=== PATIENT | male | born 1985 | race African-American/Black ===

== ENCOUNTER 2016-08-06 18:58 | Emergency (ER) | payer OTHER ==
[~2016-08-06] VITALS: Ht 177.8 cm; Wt 122.5 kg
[~2016-08-06 18:58] MED LIST: PERCOCET 325 MG1 TA2 PO; ROBITUSSIN W/CO10 ML PO; ZITHROMAX Z-PA250 M1 PO
--- NOTE | 2016-08-06 20:02 | RADIOLOGY REPORT ---
EXAMINATION: RIGHT KNEE 3 VIEWS CLINICAL INFORMATION: Right knee pain. COMPARISON: None. TECHNIQUE: AP, lateral, oblique views of the right knee were obtained. FINDINGS: There are no fractures or dislocations. There is no knee joint effusion. There is osteophyte formation about the lateral compartments. There is no significant soft tissue swelling. IMPRESSION: Mild degenerative change to the right knee which is age discordant. No evidence for acute injury.
--- NOTE | 2016-08-06 21:27 | ED UPPER/LOWER EXTREMITY COMPL ---
History of Present Illness General Chief Complaint: Lower Extremity Injury Stated Complaint: RT KNEE INJ Source: patient Exam Limitations: no limitations Vital Signs & Intake/Output Vital Signs & Intake/Output Vital Signs Date Time Temp Pulse Resp B/P B/P Pulse O2 O2 Flow FiO2 Mean Ox Delivery Rate 08/06 2146 96.5 78 16 125/88 97 08/06 1909 98.8 75 18 112/76 ED Intake and Output 08/07 0000 08/06 1200 Intake Total 90 Output Total Balance 90 Intake, Oral 90 Patient 270 lb Weight Weight Reported by Patient Measurement Method Allergies Coded Allergies: MDX - Shrimp (SHRIMP) (Intermediate, RASH 05/17/14) Reconcile Medications Azithromycin (Zithromax Z-Kemal) 250 MG CAP 1 DP PO AD BRONCHITIS 2 the first day followed by 1 for days 2-5 Ibuprofen 800 MG TABLET 1 TAB PO TID PRN pain Robitussin AC (Guaifenesin-Codeine Syrup) 10 ML LIQUID 10 ML PO Q6HR PRN COUGH Triage Note: REPORTS RIGHT KNEE PAIN THAT STARTED LAST NIGHT. REPORTED OLD INJURY BACK IN 2011 AND NEVER FOLLOWED UP RECOMMENDED. Triage Nurses Notes Reviewed? yes Onset: Abrupt Duration: hour(s): Timing: single episode today Severity: moderate Pain/Injury Location: Right: Knee. Method of Injury: twisted Modifying Factors: Improves With: rest. Worsens With: movement. Associated Symptoms: none HPI: 30yo gentleman injured in 2011 "my knee cap popped out" presents with right knee pain. "I turned and felt a sharp pain in my right knee." He notes no swelling, bony abnormality, decrease in range of motion. He is otherwise well and has no other concerns. Past History Travel History Traveled to [place] past 21 day No Medical History Any Pertinent Medical History? 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 No Review of Systems Review of Systems Constitutional: Reports: no symptoms. EENTM: Reports: no symptoms. Respiratory: Reports: no symptoms. Cardiovascular: Reports: no symptoms. Gastrointestinal/Abdominal: Reports: no symptoms. Genitourinary: Reports: no symptoms. Musculoskeletal: Reports: no symptoms. Skin: Reports: no symptoms. Neurological/Psychological: Reports: no symptoms. Hematologic/Endocrine: Reports: no symptoms. Immunological: Reports: no symptoms. All Other Systems: Reviewed and Negative Physical Exam Physical Exam General Appearance: well developed/nourished, mild distress Head: atraumatic Eyes: Bilateral: normal appearance. Ears, Nose, Throat: normal pharynx, normal ENT inspection, hearing grossly normal Neck: normal inspection, supple Cardiovascular/Respiratory: regular rate/rhythm Back: normal inspection Leg Right: no significant effusion. There is pain elicited with stress placed on the lateral collateral ligaments. No focal bony tenderness. Range of motion is normal. No sign of infection. Skin: intact, normal color, warm/dry Lymphatic: no anterior cervical nigel Progress Differential Diagnosis: right knee sprain versus contusion versus other Plan of Care: Orders Procedure Date/time Status Durable Medical Equipment 08/06 2142 Active Diagnostic Imaging: Viewed by Me: Radiology Read. Discussed w/RAD: Radiology Read. Radiology Impression: right knee... mild djd... no fx. Comments: PATIENT: MANPREET SINGLETON PRESENT AGE: 30 PATIENT ACCOUNT NO: [id number] : 86 LOCATION: [facility] ORDERING PHYSICIAN: NATALIIA SOTO MD SERVICE DATE: 08/06/16 EXAM TYPE: RAD - XRY-KNEE COMPLETE RIGHT EXAMINATION: RIGHT KNEE 3 VIEWS CLINICAL INFORMATION: Right knee pain. COMPARISON: None. TECHNIQUE: AP, lateral, oblique views of the right knee were obtained. FINDINGS: There are no fractures or dislocations. There is no knee joint effusion. There is osteophyte formation about the lateral compartments. There is no significant soft tissue swelling. IMPRESSION: Mild degenerative change to the right knee which is age discordant. No evidence for acute injury. DICTATED BY: NILA CHILDERS MD DATE/TIME DICTATED:08/06/161956 BLACK OFF WORKER:DAISY DATE/TIME TRANSCRIBED:08/06/161956 CONFIDENTIAL, DO NOT COPY WITHOUT APPROPRIATE AUTHORIZATION. <Electronically signed in Other Vendor System> SIGNED BY: NILA CHILDERS MD 08/06/162001 Departure Departure Disposition: HOME OR SELF CARE Condition: Stable Clinical Impression Primary Impression: Right knee sprain Referrals: PATIENT HAS NO PRIMARY CARE DR (PCP/Family) Departure Forms: Customer Survey General Discharge Information Prescriptions: Current Visit Scripts Ibuprofen 1 TAB PO TID PRN pain #60 TAB Ref 1 Comments Reynold bandage to right knee by nursing team. Patient given crutches. Prescription for ibuprofen sent to the pharmacy. Close follow-up encouraged.
[2016-08-06] MEDS ORDERED: IBUPROFEN800 M1 PO (21:35)
[2016-08-06 21:46] VITALS: BP 125/88
== END 2016-08-06 21:52 ==
LOC: ERH 18:58
DX: S83.91XA Sprain of unspecified site of right knee, initial encounter (principal); X58.XXXA Exposure to other specified factors, initial encounter; Y92.9 Unspecified place or not applicable; Y93.9 Activity, unspecified
CPT/HCPCS: 73562-RT

== ENCOUNTER 2017-07-10 12:07 | Emergency (ER) | payer OTHER ==
[~2017-07-10] VITALS: Ht 175.3 cm; Wt 136.1 kg
[~2017-07-10 12:07] MED LIST changes: +IBUPROFEN800 M1 PO
--- NOTE | 2017-07-10 14:06 | ED HAND/WRIST INJURY COMPLAINT ---
History of Present Illness General Chief Complaint: Laceration Procedure Stated Complaint: LAC TO FINGER LEFT Source: patient Exam Limitations: no limitations Vital Signs & Intake/Output Vital Signs & Intake/Output Vital Signs Date Time Temp Pulse Resp B/P B/P Pulse O2 O2 Flow FiO2 Mean Ox Delivery Rate 07/10 1512 97.8 80 15 107/70 99 Room Air Room Air 07/10 1224 99.2 07/10 1220 99.2 88 18 102/73 98 Room Air Allergies Coded Allergies: MDX - Shrimp (SHRIMP) (Intermediate, RASH 05/17/14) Reconcile Medications Azithromycin (Zithromax Z-Kemal) 250 MG CAP 1 DP PO AD BRONCHITIS 2 the first day followed by 1 for days 2-5 Ibuprofen 800 MG TABLET 1 TAB PO TID PRN pain Robitussin AC (Guaifenesin-Codeine Syrup) 10 ML LIQUID 10 ML PO Q6HR PRN COUGH Triage Note: 31M WITH LAC TO LEFT 5TH DIGIT FROM LAST NIGHT AT 11PM ON METAL AT WORK. UNSURE OF LAST TETANUS. BLEEDING CONTROLLED AT THIS TIME. Triage Nurses Notes Reviewed? yes Occurred: LAST NIGHT Timing: no prior history Injury Environment: work Severity: mild Pain/Injury Location: Left: 5th finger. 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 PATIENT REACHED DOWN TO PULL THE STRING AND HE DID THIS THE TIP OF HIS LEFT 5TH FINGER WAS CAUGHT ON THE EDGE OF THE [employer] MACHINE AND TORE THE TIP OF HIS FINGER THROUGH HIS NAIL. HE STATES THIS WAS AT THE END OF THE SHIFT HE WAS LEAVING. HE WENT HOME AFTER THIS BECAUSE HE DIDN'T HAVE A RIDE. HE STATES AT FIRST IT WAS BLEEDING BUT HE HELD PRESSURE FOR QUITE SOME TIME AND THE BLEEDING STOPPED. HE STATES THERE IS THROBBING IN THIS FINGER CURRENTLY ALTHOUGH HE CAN'T FEEL THE TIP. DENIES FEVER, CHILLS, NAUSEA, VOMITING. (Alfie Reed) Past History Travel History Traveled to [place] past 21 day No Medical History Any Pertinent Medical History? 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 No (Alfie Reed) Review of Systems Review of Systems Constitutional: Reports: no symptoms. EENTM: Reports: no symptoms. Respiratory: Reports: no symptoms. Cardiovascular: Reports: no symptoms. GI: Reports: no symptoms. Genitourinary: Reports: no symptoms. Musculoskeletal: Reports: no symptoms. Skin: Reports: see HPI. Neurological/Psychological: Reports: no symptoms. Hematologic/Endocrine: Reports: no symptoms. Immunologic/Allergic: Reports: no symptoms. All Other Systems: Reviewed and Negative (Alfie Reed) Physical Exam Physical Exam General Appearance: well developed/nourished, no apparent distress, alert, awake Head: atraumatic, normal appearance Eyes: Bilateral: normal appearance. Ears, Nose, Throat: normal ENT inspection Neck: normal inspection Cardiovascular/Respiratory: no respiratory distress Hand Left: 5th finger, 5TH DISTAL PHALANGE AVULSION WITH DAMAGE TO THE NAILBED. NO SURROUNDING ERYTHEMA OR PURULENT DISCHARGE Hand Right: normal inspection Neurologic/Tendon: normal motor functions, normal tendon functions, responds to pain, no evidence tendon injury, no pulse deficit, SENSATION LIMITED AT THE TIP OF THE LEFT 5TH PHALANGE AT SITE OF AVULSION Skin: intact (Alfie Reed) Progress Differential Diagnosis: abscess, cellulitis, AVULSION/LACERATION, SOFT TISSUE FOREIGN BODY Plan of Care: Considered in time 31 YEAR OLD MALE WITH LEFT 5TH DISTAL PHALANGE WITH AVULSION OF SKIN AND NAILBED. TOLERATED NERVE BLOCK AND FLUSHING WITH NORMAL SALINE. GIVEN TETANUS VACCINE. PATIENT ADVISED 2 DAYS TO AVOID WORKING AND ALLOW HEALING. RETURN WITH WORSENING SYMPTOMS. NOT SUTURABLE ON EXAM. (Alfie Reed) Departure Departure Disposition: HOME OR SELF CARE Condition: Stable Clinical Impression Primary Impression: Avulsion of skin of finger Referrals: Vicki AVENDAÑO,Bienvenido Villalta (PCP/Family) Additional Instructions: Monitor signs of infection such as redness or discharge fever chills. Return if any other concerns. Keep area clean and dry. Wash with soap and water daily. Cover with bacitracin and dry sterile dressing. Please go over all results of today's visit with your primary care doctor. Contact your primary care doctor to let them know you were here in the emergency room. There may be nonspecific findings which may not be related to your visit today here in the emergency room but may require further evaluation and chronic monitoring by your primary care doctor. If you had a laceration today the chance of foreign body always remains. You should follow-up with your primary care doctor for recheck in 3-5 days for a wound check. If you had an x-ray done there is a chance that a fracture could have been missed on initial read and you should follow-up with your primary care doctor for repeat x-rays if symptoms persist. If your blood pressure was elevated here in the emergency room please have rechecked by [facility] primary care doctor within the next 48. If you were prescribed a narcotic here in the emergency room or any type of controlled substances you're not allowed to drive while taking this medication or operate any type of heavy machinery. Narcotics can make you feel lightheaded dizziness nausea and can cause constipation. You may need to fruit or nut picker a stool softener. Thank you for choosing [facility] emergency room. Please return to the emergency room immediately if you have any other concerns worsening of symptoms. Departure Forms: Customer Survey General Discharge Information (Alfie Reed) PA/CYBER SECURITY ARCHITECT Co-Sign Statement Statement: ED Attending supervision documentation- [] I saw and evaluated the patient. I have also reviewed all the pertinent lab results and diagnostic results. I agree with the findings and the plan of care as documented in the PA's/CYBER SECURITY ARCHITECT's documentation. [X] I have reviewed the ED Record and agree with the PA's/CYBER SECURITY ARCHITECT's documentation. [] Additions or exceptions (if any) to the PAs/CYBER SECURITY ARCHITECT's note and plan are summarized below: [] (Donna AVENDAÑO,Bienvenido Rosas) Procedures Laceration/Wound Repair Laceration/Wound Repair: Wound Location: upper extremity (5TH LEFT PHALANGE) Wound's Depth, Shape: SUPERFICIAL SKIN/NAIL AVULSION Wound Explored: clean, no foreign body removed, irrigated extensively Irrigated w/ Saline (ccs): 5 Betadine Prep? Yes Anesthesia: digit block, 1% lidocaine Tetanus Status: not up to date (GIVEN TODAY) Progress: PATIENT TOLERATED WELL. (Alfie Reed) ED Attending Observation Initial Observation Note: I have seen and personally examined MANPREET SINGLETON on 07/10/17 at 1510. I agree with the current emergency department documentation. The disposition (admission or discharge) is uncertain at this time, he needs a period of observation for the following reason(s): The ED Nurse caring for this patient has been personally informed as to what the patient is being observed for. (Arnulfo PERRY,Alfie)
[2017-07-10 15:12] VITALS: BP 107/70
== END 2017-07-10 15:13 ==
LOC: ERH 12:07
DX: S61.317A Laceration without foreign body of left little finger with damage to nail, initial encounter (principal); X58.XXXA Exposure to other specified factors, initial encounter; Y92.9 Unspecified place or not applicable; Y93.9 Activity, unspecified
CPT/HCPCS: 90471; 90714

== ENCOUNTER 2017-07-16 15:42 | Emergency (ER) | payer OTHER ==
[~2017-07-16] VITALS: Ht 175.3 cm; Wt 133.8 kg
[2017-07-16 15:48] VITALS: BP 132/84
--- NOTE | 2017-07-16 17:04 | ED GENERAL ADULT ---
History of Present Illness General Chief Complaint: Hand or Wrist Injury Stated Complaint: LFT FINGER INJURY X 5DAYS AGO Source: patient Exam Limitations: no limitations Vital Signs & Intake/Output Vital Signs & Intake/Output Vital Signs Date Time Temp Pulse Resp B/P B/P Pulse O2 O2 Flow FiO2 Mean Ox Delivery Rate 07/16 1548 98.4 74 18 132/84 99 Room Air ED Intake and Output 07/17 0000 07/16 1200 Intake Total Output Total Balance Patient 295 lb Weight Weight Reported by Patient Measurement Method Allergies Coded Allergies: MDX - Shrimp (SHRIMP) (Intermediate, RASH 05/17/14) shellfish derived (ANAPHYLASIX 07/16/17) Reconcile Medications Azithromycin (Zithromax Z-Kemal) 250 MG CAP 1 DP PO AD BRONCHITIS 2 the first day followed by 1 for days 2-5 Ibuprofen 800 MG TABLET 1 TAB PO TID PRN pain Robitussin AC (Guaifenesin-Codeine Syrup) 10 ML LIQUID 10 ML PO Q6HR PRN COUGH Triage Note: PT FROM HOME C/O LEFT PINKY HAND INJURY X5 DAYS. PT STATES 5XDAYS AGO PT CUT FINGER ON METAL, PT WAS SEEN HERE, UTD ON TETANUS. PER PT "I JUST NEED TO GET IT CLEANED AGAIN AND GET A NOTE FOR WORK" Triage Nurses Notes Reviewed? yes Onset: Abrupt Duration: day(s): Timing: constant HPI: 31-year-old l otherwise healthy [id number] male presenting for wound recheck of left fifth digit laceration sustained 5 days ago on a piece of metal at work. Patient reports that his tetanus was updated at that time, wound was cleaned out, and he was told there was no indication for sutures. Patient reports for persistent pain and concerns for improper healing. States that he attempted to work 2 days ago, and was unable to due to pain. Requesting work note. (Savi Negrete) Past History Travel History Traveled to [place] past 21 day No Medical History Any Pertinent Medical History? 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 No (Savi Negrete) Review of Systems Review of Systems Constitutional: Reports: no symptoms. EENTM: Reports: no symptoms. Respiratory: Reports: no symptoms. Cardiovascular: Reports: no symptoms. GI: Reports: no symptoms. Genitourinary: Reports: no symptoms. Musculoskeletal: Reports: see HPI. Skin: Reports: no symptoms. Neurological/Psychological: Reports: no symptoms. Hematologic/Endocrine: Reports: no symptoms. Immunologic/Allergic: Reports: no symptoms. (Savi Negrete) Physical Exam Physical Exam General Appearance: well developed/nourished, no apparent distress, alert, awake , comfortable Head: atraumatic, normal appearance Eyes: Bilateral: normal appearance. Neck: normal inspection Respiratory: normal breath sounds, lungs clear Cardiovascular: regular rate/rhythm Gastrointestinal: soft, non-tender Back: normal inspection Extremities: tenderness, laceration to the distal phalanx of the left fifth digit. Laceration extends senior care across the nail. Has begun to heal by secondary intention. Patient is unable to flex at the DIP of this digit, unrestricted range of motion at the PIP and MCP. Sensation intact to median/ ulnar/radial nerves. 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 Neurologic/Psych: awake, alert, oriented x 3, normal gait, normal mood/affect Skin: normal color, warm/dry Core Measures ACS in differential dx? No CVA/TIA Diagnosis: No Sepsis Present: No Sepsis Focused Exam Completed? No (Savi Negrete) Progress Differential Diagnoses I considered the following diagnoses in my evaluation of the patient: [ Laceration versus nailbed injury versus tendon] Plan of Care: Concerns for improper healing. Discussed concerns with ED attending. We'll refer patient to plastics since his wound has already been healing by secondary intention for 5 days. Given note for work. Counseled on wound care and strict return precautions. Initial ED EKG: none (Savi Negrete) Departure Departure Disposition: HOME OR SELF CARE Condition: Stable Clinical Impression Primary Impression: Visit for wound check Referrals: Chevy Boateng MD Additional Instructions: Follow-up with the plastic surgeon for reevaluation. Return to the emergency department for any new or worsening symptoms. Departure Forms: Industrial Accident Report (Savi Negrete) PA/STAVE AND BOLT EQUALIZER Co-Sign Statement Statement: ED Attending supervision documentation- I saw and evaluated the patient. I have also reviewed all the pertinent lab results and diagnostic results. I agree with the findings and the plan of care as documented in the PA's/STAVE AND BOLT EQUALIZER's documentation. x I have reviewed the ED Record and agree with the PA's/STAVE AND BOLT EQUALIZER's documentation. [] Additions or exceptions (if any) to the PAs/STAVE AND BOLT EQUALIZER's note and plan are summarized below: [] (She AVENDAÑO,Adama) Critical Care Note Critical Care Note Critical Care Time: non-applicable (Loni PERRY,Savi)
== END 2017-07-16 16:54 ==
LOC: ERH 15:42
DX: Z48.00 Encounter for change or removal of nonsurgical wound dressing (principal)

== ENCOUNTER 2017-10-17 18:04 | Emergency (ER) | payer OTHER ==
[~2017-10-17] VITALS: Ht 175.3 cm; Wt 124.7 kg
--- NOTE | 2017-10-17 18:16 | ED UPPER/LOWER EXTREMITY COMPL ---
History of Present Illness General Chief Complaint: Lower Extremity Problems Stated Complaint: R KNEE PAIN Source: patient Exam Limitations: no limitations Vital Signs & Intake/Output Vital Signs & Intake/Output Vital Signs Date Time Temp Pulse Resp B/P B/P Pulse O2 O2 Flow FiO2 Mean Ox Delivery Rate 10/18 1951 98.2 88 18 124/79 99 Room Air 10/17 1832 97.8 10/17 1811 97.8 85 18 121/80 98 Room Air ED Intake and Output 10/18 0000 10/17 1200 Intake Total 0 Output Total Balance 0 Intake, Oral 0 Patient 275 lb Weight Weight Reported by Patient Measurement Method Allergies Coded Allergies: shrimp (Intermediate, RASH 10/17/17) shellfish derived (ANAPHYLAXIS 10/17/17) Reconcile Medications Azithromycin (Zithromax Z-Kemal) 250 MG CAP 1 DP PO AD BRONCHITIS 2 the first day followed by 1 for days 2-5 Ibuprofen 800 MG TABLET 1 TAB PO TID PRN pain Meloxicam (Mobic) 15 MG TABLET 1 TAB PO DAILY PRN PAIN Robitussin AC (Guaifenesin-Codeine Syrup) 10 ML LIQUID 10 ML PO Q6HR PRN COUGH Triage Note: PT STATES HIS RIGHT KNEE "BEEN ACTING FUNNY". PT STATES HE IS HAVING A HARD TIME WALKING ON IT BECAUSE IT IS SWOLLEN. Triage Nurses Notes Reviewed? yes Onset: Gradual Duration: constant Timing: recent history Severity: moderate Severity Numbers: 5 HPI: Patient is a 31-year-old male who presents emergency room with concerns of a gradual onset of right generalized knee pain where he states that lately he's been increasing his physical activity due to a job patient denies any new mechanism injury or trauma. Patient denies any hip or ankle pain. He states that he has "old injuries" to his right knee that has caused chronic intermittent pain right knee pain. No surgical intervention per patient (Matt PERRY,Serafin) Past History Travel History Traveled to [place] past 21 day No Medical History Any Pertinent Medical History? none Neurological: NONE EENT: NONE Cardiovascular: NONE Respiratory: NONE Gastrointestinal: NONE Hepatic: NONE Renal: NONE Musculoskeletal: NONE Psychiatric: NONE Endocrine: NONE Blood Disorders: NONE Cancer(s): NONE [employer] TE[employer]ER/Reproductive: NONE Tetanus Vaccine: 07/10/17 Surgical History Surgical History: none Psychosocial History What is your primary language Wolof Tobacco Use: Never used ETOH Use: occasional use Illicit Drug Use: denies illicit drug use Family History Hx Contributory? No (Serafin Beltran) Review of Systems Review of Systems Constitutional: Reports: no symptoms. EENTM: Reports: no symptoms. Respiratory: Reports: no symptoms. Cardiovascular: Reports: no symptoms. Gastrointestinal/Abdominal: Reports: no symptoms. Genitourinary: Reports: no symptoms. Musculoskeletal: Reports: see HPI, joint pain. Skin: Reports: no symptoms. Neurological/Psychological: Reports: no symptoms. Hematologic/Endocrine: Reports: no symptoms. Immunological: Reports: no symptoms. All Other Systems: Reviewed and Negative (Serafin Beltran) Physical Exam Physical Exam General Appearance: no apparent distress, alert, comfortable Head: atraumatic Eyes: Bilateral: normal appearance. Ears, Nose, Throat: hearing grossly normal Neck: normal inspection Cardiovascular/Respiratory: no respiratory distress Neurologic/Tendon: normal sensation, normal motor functions, normal tendon functions, responds to pain, no evidence tendon injury, no pulse deficit Skin: intact, normal color, warm/dry Comments: Right hip normal inspection nontender Right knee normal inspection generalized joint line point tenderness for elective range of motion negative valgus stress test negative varus stress test negative anterior drawer test (Serafin Beltran) Progress Differential Diagnosis: arterial insufficiency, compartment syndrome, contusion, dislocation, DVT, fracture, gout, septic arthritis, sprain, tendon injury Plan of Care: Orders Procedure Date/time Status XRY-KNEE COMPLETE RIGHT 10/18 1815 Active Patient was neurovascular intact to right lower extremity no signs of infection no signs of septic joint x-rays were obtained showing degeneration patient likely has mild right knee arthritis no fracture noted. Discussed disposition plan with patient who agrees he has normal steady gait Diagnostic Imaging: Viewed by Me: Radiology Read. Radiology Impression: no fracture Comments: PATIENT: MANPREET SINGLETON PRESENT AGE: 31 PATIENT ACCOUNT NO: [id number] : 86 LOCATION: [facility] ORDERING PHYSICIAN: Serafin PERRY SERVICE DATE: 10/17/17 EXAM TYPE: RAD - XRY-KNEE COMPLETE RIGHT EXAMINATION: RIGHT KNEE 4 VIEWS CLINICAL INFORMATION: Right knee pain. COMPARISON: None. TECHNIQUE: AP, lateral, tunnel, sunrise views of the right knee were obtained. FINDINGS: There are no fractures or dislocations. There is no knee joint effusion. There is mild tibial spine spurring. There is mild narrowing to the lateral compartment. There is no significant soft tissue swelling. IMPRESSION: Mild degenerative change without evidence of acute injury. DICTATED BY: Josh Godoy MD DATE/TIME DICTATED:10/17/171841 GROUP SUPERVISOR YARD:DAISY DATE/TIME TRANSCRIBED:10/17/171841 (Serafin Beltran) Departure Departure Disposition: HOME OR SELF CARE Condition: Stable Clinical Impression Primary Impression: Right knee pain Secondary Impressions: Arthritis of knee, right Referrals: Vicki AVENDAÑO,Bienvenido Villalta (PCP/Family) Cezar Sanchez MD Additional Instructions: As discussed begin the prescription meloxicam for pain. Follow-up in one week with orthopedic Dr. Sanchez if no better. IF symptoms worsen return to emergency room, begin icing the area 20 minutes every 2 hours Prescriptions waiting at [facility] Departure Forms: Customer Survey General Discharge Information Prescriptions: Current Visit Scripts Meloxicam (Mobic) 1 TAB PO DAILY PRN PAIN #14 TAB (Serafin Beltran) PA/ORDER EXPEDITER Co-Sign Statement Statement: ED Attending supervision documentation- [] I saw and evaluated the patient. I have also reviewed all the pertinent lab results and diagnostic results. I agree with the findings and the plan of care as documented in the PA's/ORDER EXPEDITER's documentation. [x] I have reviewed the ED Record and agree with the PA's/ORDER EXPEDITER's documentation. [] Additions or exceptions (if any) to the PAs/ORDER EXPEDITER's note and plan are summarized below: [] (Vanessa AVENDAÑO,Jamie Valencia)
--- NOTE | 2017-10-17 18:52 | RADIOLOGY REPORT ---
EXAMINATION: RIGHT KNEE 4 VIEWS CLINICAL INFORMATION: Right knee pain. COMPARISON: None. TECHNIQUE: AP, lateral, tunnel, sunrise views of the right knee were obtained. FINDINGS: There are no fractures or dislocations. There is no knee joint effusion. There is mild tibial spine spurring. There is mild narrowing to the lateral compartment. There is no significant soft tissue swelling. IMPRESSION: Mild degenerative change without evidence of acute injury.
[2017-10-17] MEDS ORDERED: MOBIC15 M1 PO (19:50)
[2017-10-17 19:52] VITALS: BP 124/79
== END 2017-10-17 19:56 ==
LOC: ERH 18:04
DX: M25.561 Pain in right knee (principal); M17.11 Unilateral primary osteoarthritis, right knee
CPT/HCPCS: 73562-RT